=== PATIENT | female | born 1985 | race African-American/Black ===

== ENCOUNTER 2018-07-04 00:54 | Emergency (ER) | payer MEDICAID ==
[~2018-07-04] VITALS: Ht 175.3 cm; Wt 87.0 kg
[2018-07-04] MEDS ORDERED: SODIUM CHLORIDE 0.9% 1,000 ML IV ONE (01:31)
[2018-07-04 02:39] LABS: CHLORIDE 103 mEq/L (98-107)
[2018-07-04 02:52] LABS: BASOPHILS % 0.4 % (0.0-2.0); EOSINOPHILS % 2.5 % (0.0-5.0); HEMATOCRIT. 31.1 % (36.0-48.0); HEMOGLOBIN. 10.7 g/dL (12.0-16.0); LYMPHOCYTES % 33.7 % (20.0-50.0); MEAN CORPUSCULAR HEMOGLOBIN 30.6 pg (28.0-32.0); MEAN CORPUSCULAR VOLUME 88.7 fL (81.0-99.0); MEAN PLATELET VOLUME 7.8 fl (7.4-10.4); MONOCYTES % 8.5 % (2.0-8.0); NEUTROPHILS % 54.9 % (40.0-76.0); PLATELET 264 x1000/uL (130-400); RED CELL DISTRIBUTION WIDTH 13.6 % (11.6-14.6)
[2018-07-04 03:08] LABS: B-HCG QUANTITATIVE 14110 mIU/mL (<3)
[2018-07-04 04:20] VITALS: BP 97/57
== END 2018-07-04 06:50 | disposition home or self-care (01) ==
LOC: ER 01:09
DX: O26.892 Other specified pregnancy related conditions, second trimester (principal); R42 Dizziness and giddiness; O44.22 Partial placenta previa NOS or without hemorrhage, second trimester; O99.322 Drug use complicating pregnancy, second trimester; F12.10 Cannabis abuse, uncomplicated; Z3A.18 18 weeks gestation of pregnancy; R01.1 Cardiac murmur, unspecified
CPT/HCPCS: 36415; 76805; 80053; 84702; 85025; 86850; 86900; 86901; 93005; 96360; 96361; 99285; J7030